=== PATIENT | male | born 2000 | race Caucasian/White ===

== ENCOUNTER → 2023-09-03 17:29 | Outpatient (REF) | payer BC, SELFPAY | LOC: MRI 3T 17:29 | PROVIDERS: ATTENDING PHYSICIAN Student in an Organized Health Care Education/Training Program | DX: S43.432A Superior glenoid labrum lesion of left shoulder, initial encounter (principal) | CPT/HCPCS: 73221 ==

== ENCOUNTER → 2024-12-27 18:29 | Outpatient (REF) | payer BC, SELFPAY | LOC: MRI 18:29 | PROVIDERS: ATTENDING PHYSICIAN Pain Medicine Interventional Pain Medicine; FAMILY PHYSICIAN Internal Medicine | DX: M54.14 Radiculopathy, thoracic region (principal) | CPT/HCPCS: 72146 ==